=== PATIENT | male | born 1980 | race Hispanic/Latino ===

== ENCOUNTER 2017-05-10 20:23 | Inpatient (IN) | payer OTHER, MEDICAID ==
[2017-05-10] MEDS ORDERED: Lactated Ringer's 1,000 ML IV STA (20:50)
[2017-05-10] MEDS ORDERED: Multivitamin (MVI) 10 ML, Thiamine 100 MG, Folic Acid 1 MG in Sodium Chloride 0.9% 1,00... IV ONE (20:52)
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
[2017-05-10 21:08] LABS: SQUAMOUS EPITHIAL < 1 /hpf (0-5); URINE BACTERIA RARE (<OCC); URINE BILIRUBIN NEGATIVE (NEGATIVE); URINE BLOOD NEGATIVE (NEGATIVE); URINE CLARITY Clear (Clear); URINE COLOR Yellow (YELLOW); URINE GLUCOSE (UA) NORMAL (Normal); URINE LEUKOCYTE ESTERASE NEG Leu/uL (Negative); URINE PROTEIN NEGATIVE (NEGATIVE); URINE UROBILINOGEN NORMAL mg/dL (0.2-1.0)
[2017-05-10 21:16] LABS: BASO # 0.1 K/uL (0.0-0.2); BASO % 0.6 % (0.0-2.0); EOS # 0.1 K/uL (0.0-0.7); EOS % 0.8 % (0.0-4.0); HEMOGLOBIN 12.9 g/dL (12.0-18.0); LYMPH # 3.7 K/uL (1.0-4.3); LYMPH % 25.8 % (20.0-40.0); MEAN CELL VOLUME 96.5 fL (80.0-94.0); MEAN CORPUSCULAR HEMOGLOBIN 32.1 pg (27.0-31.0); MEAN CORPUSCULAR HGB CONC 33.3 g/dL (33.0-37.0); MEAN PLATELET VOLUME 7.8 fL (7.2-11.7); MONO # 0.6 K/uL (0.0-0.8); MONO % 4.4 % (0.0-10.0); NEUT # 9.9 K/uL (1.8-7.0); NEUT % 68.4 % (50.0-75.0); RBC 4.02 Mil/uL (4.40-5.90); RED CELL DISTRIBUTION WIDTH 13.4 % (11.5-14.5); WHITE BLOOD COUNT 14.5 K/uL (4.8-10.8)
[2017-05-10 21:26] LABS: BARBITURATES, UR NEGATIVE (NEGATIVE); BENZODIAZEPINES, UR NEGATIVE (NEGATIVE); OPIATES, UR NEGATIVE (NEGATIVE); PHENCYCLIDINE, UR NEGATIVE (NEGATIVE)
[2017-05-10 21:28] LABS: ALB/GLOB RATIO 1.4 (1.0-2.1); ALBUMIN 4.5 g/dL (3.5-5.0); ALT/SGPT 40 U/L (21-72); AST/SGOT 51 U/L (17-59); BLOOD UREA NITROGEN 16 mg/dL (9-20); CALCIUM 9.5 mg/dl (8.6-10.4); GFR AFRICAN-AMERICAN > 60; GFR NON-AFRICAN AMERICAN > 60
--- NOTE | 2017-05-10 23:35 | CT ---
EXAM: CT Head Without Intravenous Contrast CLINICAL HISTORY: 36 years old, male; Injury or trauma; Fall; Initial encounter; Blunt trauma (contusions or hematomas); Consciousness not specified TECHNIQUE: Axial computed tomography images of the head/brain without intravenous contrast. All CT scans at this facility use one or more dose reduction techniques, viz.: automated exposure control; ma/kV adjustment per patient size (including targeted exams where dose is matched to indication; i.e. head); or iterative reconstruction technique. Coronal and sagittal reformatted images were created and reviewed. COMPARISON: No relevant prior studies available. FINDINGS: Brain: Mild atrophy. Small subdural collections along frontal convexities, mildly increased in attenuation relative to CSF, right greater than left. No mass. Mild encephalomalacia within left frontal region. No definite edema. Ventricles: No hydrocephalus. Bones/joints: No calvarial fracture. Mastoid air cells: No mastoid effusion. IMPRESSION: 1. Mildly hyperdense subdural collections. Acute/subacute on chronic subdural hematomas not excluded. Compare with prior examinations if available. 2. See facial bone CT report for additional details. 3. Incidental/non-acute findings are described above.
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
[2017-05-10] MEDS: Lactated Ringer's 1,000 ML IV SCH (23:40)
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
[2017-05-11 08:20] LABS: MEAN CELL VOLUME 96.7 fL (80.0-94.0); MEAN CORPUSCULAR HGB CONC 34.1 g/dL (33.0-37.0); MEAN PLATELET VOLUME 8.3 fL (7.2-11.7); RBC 3.03 Mil/uL (4.40-5.90); RED CELL DISTRIBUTION WIDTH 13.5 % (11.5-14.5); WHITE BLOOD COUNT 7.4 K/uL (4.8-10.8)
[2017-05-11] MEDS: Lactated Ringer's 1,000 ML IV SCH ×4 (08:45→23:16)
[2017-05-11] MEDS: Multiple Vitamins Tab PO SCH (09:25)
[2017-05-11 09:49] LABS: AMYLASE 55 U/L (30-110); BLOOD UREA NITROGEN 21 mg/dL (9-20); CALCIUM 8.6 mg/dl (8.6-10.4); GFR AFRICAN-AMERICAN > 60; GFR NON-AFRICAN AMERICAN > 60; LIPASE 94 U/L (23-300)
[2017-05-11] MEDS ORDERED: Enoxaparin 40 mg Syringe SC SCH (10:00)
--- NOTE | 2017-05-11 10:29 | CP.PCM.PN ---
Subjective - Date & Time of Evaluation Date of Evaluation: 05/11/17 Time of Evaluation: 10:27 - Subjective Subjective: miinimal SDHs seen on CT Told had CT day or so prior at other institution REpeat CT this AM shows no sig changes No intervention requiredcan be d/c'ed when otherwise clear Objective - Vital Signs/Intake and Output Vital Signs (last 24 hours): Temp Pulse Resp BP Pulse Ox 97.7 F 83 17 93/49 L 97 05/11/17 07:30 05/11/17 08:23 05/11/17 08:23 05/11/17 08:23 05/11/17 08:23 Intake and Output: 05/11/17 05/11/17 06:59 18:59 Intake Total 2125 Output Total 1200 Balance 925 - Medications Medications: Current Medications Clonidine HCl (Catapres) 0.1 mg PO Q4H PRN PRN Reason: Symptoms of alcohol withdrawl Folic Acid (Folic Acid) 1 mg PO DAILY [facility] Last Admin: 05/11/17 09:25 Dose: 1 mg Lactated Ringer's (Lactated Ringer's) 1,000 mls @ 125 mls/hr IV .Q8H SABAS Last Admin: 05/11/17 08:45 Dose: Not Given Lorazepam (Ativan) 2 mg PO Q4 SABAS PRN Reason: Taper Stop: 05/15/17 23:29 Last Admin: 05/11/17 09:25 Dose: 2 mg Multivitamins (Hexavitamin) 1 tab PO DAILY [facility] Last Admin: 05/11/17 09:25 Dose: 1 tab Thiamine HCl (Vitamin B1 Tab) 100 mg PO DAILY [facility] Last Admin: 05/11/17 09:29 Dose: 100 mg Trazodone HCl (Desyrel) 50 mg PO PRN PRN Reason: Insomnia - Labs Labs: 05/11/17 07:54 05/11/17 07:54
--- NOTE | 2017-05-11 10:29 | CT ---
PROCEDURE: CT HEAD WITHOUT CONTRAST. HISTORY: repeat order COMPARISON: 05/10/2017 TECHNIQUE: Axial computed tomography images were obtained through the head/brain without intravenous contrast. Radiation dose: Total exam DLP = 924.82 mGy-cm. This CT exam was performed using one or more of the following dose reduction techniques: Automated exposure control, adjustment of the mA and/or kV according to patient size, and/or use of iterative reconstruction technique. FINDINGS: HEMORRHAGE: Likely small bilateral chronic frontal convexity subdural hygromas. Slightly increased density of the right frontal subdural hygroma relative to the left indicating subacute nature of the right hygroma. No evidence of acute subdural hemorrhage. No evidence of subarachnoid or intraparenchymal hemorrhage. BRAIN: Left frontal encephalomalacia common nonspecific. This may be the result of old trauma or old infarcts. Unchanged in appearance from prior examination. No atrophy or chronic microvascular ischemic changes. VENTRICLES: Unremarkable. No hydrocephalus. CALVARIUM: No calvarial fracture. Left frontal scalp hematoma extending to involve the left superior palpebrum. Mild right frontal scalp ecchymosis. Small amount of subcutaneous gas within the midline frontal scalp indicates likely laceration. PARANASAL SINUSES: Chronic ethmoid and bilateral maxillary and sphenoid sinusitis. MASTOID AIR CELLS: Unremarkable as visualized. No inflammatory changes. OTHER FINDINGS: None. IMPRESSION: Small bilateral chronic frontal convexity subdural hygromas with slight increased density of the right frontal subdural collection indicating likely subacute nature. No evidence of acute extra-axial hemorrhage. No parenchymal hemorrhage. No intraventricular hemorrhage. Left frontal encephalomalacia common nonspecific. Left frontal scalp hematoma/contusion with probable frontal scalp laceration and subcutaneous gas. Additional minor findings as above.
[2017-05-11] MEDS: Bacitracin/Neomycin/Polymyxin Oint(30GM) TOP SCH ×2 (14:15→17:04)
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
--- NOTE | 2017-05-11 17:45 | CT ---
EXAM: CT Cervical Spine Without Intravenous Contrast EXAM DATE/TIME: 05/11/2017 1:33 PM CLINICAL HISTORY: 36 years old, male; Signs and symptoms; Numbness; Additional info: Arm numbness TECHNIQUE: Axial computed tomography images of the cervical spine without intravenous contrast. All CT scans at this facility use one or more dose reduction techniques, viz.: automated exposure control; ma/kV adjustment per patient size (including targeted exams where dose is matched to indication; i.e. head); or iterative reconstruction technique. Coronal and sagittal reformatted images were created and reviewed. COMPARISON: There are no prior studies for comparison. FINDINGS: Artifacts: There is streak artifact from surgical hardware. Vertebrae: There is maintenance of the cervical lordosis. There is a convex left cervical curve. There is no prevertebral soft tissue swelling. There is degenerative change at multiple levels. There are postsurgical changes at multiple levels. There is narrowing the pre-dental space. There is disc space narrowing at all levels. There is partial disc space fusion C5-C6 C6-C7 and C7-T1. There is narrowing of multiple facet joints. 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 There is a laminectomy at the C2. Posterior arch of C3 and C4 are intact. There posterior fusion C5/C6/C7. There are laminectomy defects C5 and C6. There postsurgical changes in the posterior arch at C7. Posterior arches T1 and T2 are intact. There are postsurgical changes of fusion T2, T3 and T4 which are incompletely imaged. Discs/spinal canal/neural foramina: See above. Soft tissues: See above. Thyroid: Thyroid is unremarkable Lung apices: Lung apices are clear IMPRESSION: Extensive postsurgical and degenerative change, no acute abnormality identified Correlation with prior images advised
[2017-05-12 07:35] LABS: HEMOGLOBIN 10.4 g/dL (12.0-18.0); MEAN CELL VOLUME 97.2 fL (80.0-94.0); MEAN CORPUSCULAR HEMOGLOBIN 33.2 pg (27.0-31.0); MEAN CORPUSCULAR HGB CONC 34.1 g/dL (33.0-37.0); MEAN PLATELET VOLUME 8.3 fL (7.2-11.7); RBC 3.14 Mil/uL (4.40-5.90); RED CELL DISTRIBUTION WIDTH 13.4 % (11.5-14.5); WHITE BLOOD COUNT 6.8 K/uL (4.8-10.8)
[2017-05-12 07:41] LABS: BLOOD UREA NITROGEN 13 mg/dL (9-20); CALCIUM 8.6 mg/dl (8.6-10.4); GFR AFRICAN-AMERICAN > 60; GFR NON-AFRICAN AMERICAN > 60
[2017-05-12] MEDS: Multiple Vitamins Tab PO SCH (09:44)
[2017-05-12] MEDS: Bacitracin/Neomycin/Polymyxin Oint(30GM) TOP SCH (09:47)
[2017-05-12] MEDS ORDERED: Pneumococcal 23-Valent Vaccine IM ONE (10:00)
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
--- NOTE | 2017-05-13 00:48 | PCM.PYCHPN ---
Psychiatric Progress Note - Psychiatric Progress Note Patient seen today, length of contact: 15 min Patient Chief Complaint: "I need detox" Problems Identified/Issues Discussed: Patient seen and evaluated, chart reviewed and discussed with the nurse. Patient still reports withdrawal symptoms including nausea, headaches, cramps and sweating. He reports irritable mood but denies any feelings of hopelessness and helplessness. He denies any SI/HI/AVH. Patient remained isolated, confined and withdrawn. He is taking medication and denies any side effects. He needs more time for stabilization. Supportive therapy and psychoeducation were given. Medication Change: Yes Medical Record Reviewed: Yes Mental Status Examination - Cognitive Function Orientation: Person, Place, Situation, Time Memory: Intact Attention: WNL Concentration: Poor Association: WNL Fund of Knowledge: Poor - Mood Mood: Depressed, Anxious - Affect Affect: Constricted, Depressed - Speech Speech: Soft - Formal Thought Process Formal Thought Process: No Impairment - Suicidal Ideation Suicidal Ideation: No - Homicidal Ideation Homicidal Ideation: No Goal/Treatment Plan - Goal/Treatment Plan Need for Continued Stay: Severe depression anxiety, Severe functional impairment Progress Toward Problem(s) and Goals/Treatment Plan: Alcohol use disorder severe CBT Psychoeducation Supportive therapy, individual therapy Use [place] for abstinence Alcohol withdrawal CBT Psychoeducation Supportive therapy, individual therapy Ativan taper when scoring Ativan PRN Bipolar disorder Psychoeducation Supportive therapy, group therapy, individual therapy Trazodone 50 mg - Smoking Cessation Smoking Cessation Initiated: No
[2017-05-13] MEDS: Multiple Vitamins Tab PO SCH (09:28)
[2017-05-13] MEDS: Bacitracin/Neomycin/Polymyxin Oint(30GM) TOP SCH (09:29)
[2017-05-13] MEDS ORDERED: Influenza Vaccine 60 mcg/0.5 mL SYR (4YR UP) IM ONE (10:00)
--- NOTE | 2017-05-13 11:19 | CP.PCM.PCO ---
Physician Communication Note - Physician Communication Note Physician Communication Note: Pt stable. Admit to detox.
--- NOTE | 2017-05-13 11:51 | PCM.PYCHPN ---
Psychiatric Progress Note - Psychiatric Progress Note Patient seen today, length of contact: 17 min Patient Chief Complaint: "Not well" Problems Identified/Issues Discussed: Pt is seen, chart reviewed and case discussed. The pt is compliant with medications and reports no side-effects. Symptoms are improving but needs more time to stabilize. Transferred to detox as he is now medically cleared He is known to the underwriter from previous admission. He claims he is active and enrolled [facility]. After care discussed, support and psychoeducation given. Medication Change: Yes (detox changes daily) Medical Record Reviewed: Yes Mental Status Examination - Cognitive Function Orientation: Person, Place, Situation, Time Memory: Intact Attention: WNL Concentration: WNL Association: WNL Fund of Knowledge: WNL - Mood Mood: Depressed, Anxious - Affect Affect: Constricted, Depressed - Speech Speech: Appropriate - Formal Thought Process Formal Thought Process: No Impairment - Suicidal Ideation Suicidal Ideation: No - Homicidal Ideation Homicidal Ideation: No Goal/Treatment Plan - Goal/Treatment Plan Need for Continued Stay: Discharge may exacerbated symptoms, Severe functional impairment Progress Toward Problem(s) and Goals/Treatment Plan: Ativan detox As needed medications Gabapentin for augmentation All risks, benefits and alternatives of medications, including no medications, discussed and the patient understood and agreed. Attend groups and activities Supportive therapy and psychoeducation [place] for abstinence CBT for relapse prevention Encourage MAT Refer to rehab or IOP Attend self-help groups as well
--- NOTE | 2017-05-13 12:12 | PCM.BM ---
<Bianca Osman - Last Filed: 05/13/17 12:13> Treatment Plan Problems - Problems identified on initial assessmt Potential for Alcohol abuse Date Initiated: 05/13/17 Time Initiated: 12:00 Assessment reference: NA Status: Active Treatment assets and liabiliti Patient Assests: adapts well (ambulates using wheelchair), cooperative, insightful, self-reliant, good support system, negotiates basic needs Patient Liabilities: physical pain, substance abuse, medical problems - Milieu Protocol Maintain good personal hygiene: every shift Encourage regular showers, every shift Remind patient to perform daily oral care, every shift Assist patient to perform ADL's Maintain personal safety: every shift Educate patient to report safety concerns to staff, every shift Monitor environment for contraband/sharps Medication safety: Monitor for expected outcome, potential side effects: every shift, Assess barriers to learning: every shift, Assess readiness for medication education: every shift Milieu Narrative: Alcohol use disorder severe CBT Psychoeducation Supportive therapy, individual therapy Use IN for abstinence Alcohol withdrawal CBT Psychoeducation Supportive therapy, individual therapy Ativan taper when scoring Ativan PRN Bipolar disorder Psychoeducation Supportive therapy, group therapy, individual therapy Trazodone 50 mg Discharge/Continuing Care - Treatment Team Participation Patient/Family/SO Statement: Alcohol use disorder severe CBT Psychoeducation Supportive therapy, individual therapy Use IN for abstinence Alcohol withdrawal CBT Psychoeducation Supportive therapy, individual therapy Ativan taper when scoring Ativan PRN Bipolar disorder Psychoeducation Supportive therapy, group therapy, individual therapy Trazodone 50 mg <Jordin Pan - Last Filed: 05/13/17 16:34> - Diagnosis (1) Alcohol use disorder, severe, dependence Status: Acute Interventions: 05/13/17 16:34 * Assess 7x/week regarding severity of withdrawal * Educate regarding risks, benefits, side effects and alternatives of medications * Use Motivational Interviewing for abstinence * Use CBT for relapse prevention * Medication management for withdrawal symptoms * Encourage medication assisted treatment *
--- NOTE | 2017-05-13 18:47 | CP.PCM.PCO ---
Physician Communication Note - Physician Communication Note Physician Communication Note: Please see above
[2017-05-14] MEDS: Bacitracin/Neomycin/Polymyxin Oint(30GM) TOP SCH (09:35)
[2017-05-14] MEDS: Multiple Vitamins Tab PO SCH (09:36)
--- NOTE | 2017-05-14 12:10 | PCM.PYCHPN ---
Psychiatric Progress Note - Psychiatric Progress Note Patient seen today, length of contact: 18 min Patient Chief Complaint: "I have pain" Problems Identified/Issues Discussed: The pt is seen, chart reviewed, case discussed with staff. Support given, CBT and GA used briefly No new symptoms reported, improving slowly and needs more time No SEs from medications, risks discussed. After care discussed - will go back to [facility] and stay in a care home in [place]. He says he cannot work so [employer] is not possible. DC date is Thursday Sutures are taken out w/o any complication, he thanked. They were in at least for 5 days Medication Change: Yes (detox changes daily) Medical Record Reviewed: Yes Mental Status Examination - Cognitive Function Orientation: Person, Place, Situation, Time Memory: Intact Attention: WNL Concentration: WNL Association: WNL Fund of Knowledge: WNL - Mood Mood: Depressed, Anxious - Affect Affect: Constricted, Depressed - Speech Speech: Appropriate - Formal Thought Process Formal Thought Process: No Impairment - Suicidal Ideation Suicidal Ideation: No - Homicidal Ideation Homicidal Ideation: No Goal/Treatment Plan - Goal/Treatment Plan Need for Continued Stay: Discharge may exacerbated symptoms, Severe functional impairment Progress Toward Problem(s) and Goals/Treatment Plan: Ativan detox As needed medications Gabapentin for augmentation All risks, benefits and alternatives of medications, including no medications, discussed and the patient understood and agreed. Attend groups and activities Supportive therapy and psychoeducation GA for abstinence CBT for relapse prevention Encourage MAT Refer to rehab or IOP Attend self-help groups as well
--- NOTE | 2017-05-14 17:57 | CARD ---
APPROVED REPORT EKG Measurement Heart [id number] <Conclusion> Sinus tachycardia Otherwise normal ECG
[2017-05-15] MEDS: Multiple Vitamins Tab PO SCH (09:33)
[2017-05-15] MEDS: Bacitracin/Neomycin/Polymyxin Oint(30GM) TOP SCH (09:36)
--- NOTE | 2017-05-15 12:13 | PCM.PYCHPN ---
Psychiatric Progress Note - Psychiatric Progress Note Patient seen today, length of contact: 15 min Patient Chief Complaint: "I have headache sometimes" Problems Identified/Issues Discussed: The pt is seen, chart reviewed, case discussed with staff. The pt is compliant with medications and reports no side-effects. Symptoms are improving but needs more time to stabilize. After care discussed, support and psychoeducation given. Other than mild headache, no other neuro sxs reported, ie numbness, weakness, double-vision etc. will follow Scars are clear and uninfected. After care: IOP in [facility] [place] [facility] [place] on Thursday Medication Change: Yes (detox changes daily) Medical Record Reviewed: Yes Mental Status Examination - Cognitive Function Orientation: Person, Place, Situation, Time Memory: Intact Attention: WNL Concentration: WNL Association: WNL Fund of Knowledge: WNL - Mood Mood: Depressed, Anxious - Affect Affect: Constricted, Depressed - Speech Speech: Appropriate - Formal Thought Process Formal Thought Process: No Impairment - Suicidal Ideation Suicidal Ideation: No - Homicidal Ideation Homicidal Ideation: No Goal/Treatment Plan - Goal/Treatment Plan Need for Continued Stay: Discharge may exacerbated symptoms, Severe functional impairment Progress Toward Problem(s) and Goals/Treatment Plan: Ativan detox As needed medications Gabapentin for augmentation All risks, benefits and alternatives of medications, including no medications, discussed and the patient understood and agreed. Attend groups and activities Supportive therapy and psychoeducation CA for abstinence CBT for relapse prevention Encourage MAT Refer to rehab or IOP Attend self-help groups as well Estimated Date of D/C: 05/17/17
[2017-05-16] MEDS: Bacitracin/Neomycin/Polymyxin Oint(30GM) TOP SCH (09:09)
[2017-05-16] MEDS: Multiple Vitamins Tab PO SCH (09:09)
[2017-05-17] MEDS: Multiple Vitamins Tab PO SCH (09:14)
[2017-05-17] MEDS: Bacitracin/Neomycin/Polymyxin Oint(30GM) TOP SCH (09:14)
[2017-05-17 10:14] VITALS: BP 107/70; PULSE 89; RESP 20; TEMP 98.9; O2SAT 99
--- NOTE | 2017-05-17 21:31 | PCM.PYCHPN ---
Psychiatric Progress Note - Psychiatric Progress Note Patient seen today, length of contact: 15 min Patient Chief Complaint: I'M STILL NOT SLEEPING WELL AND HAVING WEIRD DREAMS Problems Identified/Issues Discussed: MANAGEMENT OF WITHDRAWAL SYMPTOMS POST ACUTE WITHDRAWAL SYNDROME Medical Problems: NOTHING ACUTE Diagnostic Results: REVIEWED DSM 5 Symptoms Update: INSOMNIA RESTLESS LEGS Medication Change: Yes (LTBRIUM AND METHADONE GTAPER) Medical Record Reviewed: Yes Mental Status Examination - Cognitive Function Orientation: Person, Place, Situation, Time Memory: Intact Attention: WNL Concentration: Poor Association: WNL Fund of Knowledge: WNL - Mood Mood: Depressed, Anxious - Affect Affect: Constricted, Depressed - Speech Speech: Appropriate, Soft - Formal Thought Process Formal Thought Process: No Impairment - Suicidal Ideation Suicidal Ideation: No - Homicidal Ideation Homicidal Ideation: No Goal/Treatment Plan - Goal/Treatment Plan Need for Continued Stay: Severe depression anxiety, Discharge may exacerbated symptoms, Severe functional impairment Progress Toward Problem(s) and Goals/Treatment Plan: ALCOHOL USE DISOPRDER LIBRIUM TAPER ALCOHOL USE DISORDER SEVERE CBT MD GROUP MILIEU AND RECREATIONAL THERAPY SUPPORTIVE PSYCHOTHERAPY OPIOID WITHDRAWAL METHADONE OPIOID USE DISORDER CBT MD SUPPORTIVE PSYCHOTHERAPY Estimated Date of D/C: 05/17/17 - Smoking Cessation Smoking Cessation Initiated: No
== END 2017-05-17 10:15 | disposition home or self-care (01) | DRG 895 ==
LOC: SUPCPDRO 20:23 → C.ER 20:23 → C.9E 22:20 → C.6T 05-11 08:14 → OBSVTOIN 05-12 16:31 → C.6T 05-13 10:23 → C.7D 05-13 11:16
PROVIDERS: ADMIT Psychiatry & Neurology Psychiatry; ATTEND Psychiatry & Neurology Psychiatry
PROC: HZ52ZZZ Individual Psychotherapy for Substance Abuse Treatment, Cognitive-Behavioral (ICD-10-PCS; principal; 2017-05-12)
PROC: HZ59ZZZ Individual Psychotherapy for Substance Abuse Treatment, Supportive (ICD-10-PCS; 2017-05-12)
PROC: HZ56ZZZ Individual Psychotherapy for Substance Abuse Treatment, Psychoeducation (ICD-10-PCS; 2017-05-12)
PROC: HZ2ZZZZ Detoxification Services for Substance Abuse Treatment (ICD-10-PCS; 2017-05-12)
DX: F10.239 Alcohol dependence with withdrawal, unspecified (principal); M41.9 Scoliosis, unspecified; F11.23 Opioid dependence with withdrawal; F31.9 Bipolar disorder, unspecified; F17.210 Nicotine dependence, cigarettes, uncomplicated; F43.10 Post-traumatic stress disorder, unspecified; G25.81 Restless legs syndrome; G40.909 Epilepsy, unspecified, not intractable, without status epilepticus; G47.00 Insomnia, unspecified; H91.91 Unspecified hearing loss, right ear; Z59.0 Homelessness; F12.90 Cannabis use, unspecified, uncomplicated

== ENCOUNTER 2017-07-14 10:25 | Emergency (ER) | payer OTHER ==
--- NOTE | 2017-07-14 12:31 | C.PDOC ---
History Of Present Illness 36 y/o male presents to ED requesting detox from Marijuana, ETOH and Cocaine. Patient reports last used yesterday. At present time,pt denies suicidal ideation , homicidal ideation, hallucinations or any other physical complaints at this time. At the time of evaluation, AAO#3, appropriate, not in nay apparent distress. Time Seen by Provider: 07/14/17 10:30 Chief Complaint (Nursing): Substance Abuse History Per: Patient History/Exam Limitations: no limitations Onset/Duration Of Symptoms: Days Current Symptoms Are (Timing): Still Present Suicide/Self Injury Attempted (Context): None Modifying Factor(s): Alcohol, Marijuana, Cocaine Past Medical History Reviewed: Historical Data, Nursing Documentation, Vital Signs Vital Signs: Last Vital Signs Temp 98.6 F 07/14/17 12:58 Pulse 83 07/14/17 12:58 Resp 20 07/14/17 12:58 BP 126/83 07/14/17 12:58 Pulse Ox 96 07/14/17 12:58 - Medical History PMH: Anxiety, Back Problems, Depression, Post Traumatic Stress Disorder Surgical History: Back Surgery - [facility] DETOXIFICATION SERVICES FOR SUBSTANCE ABUSE TREATMENT (05/12/17) GROUP PSYCHOTHERAPY (01/06/17) INDIV PSYCHOTHERAPY FOR SUBSTANCE ABUSE TREATMENT, SUPPORT (05/12/17) INDIV PSYCHOTHERAPY FOR SUBSTANCE ABUSE, COGNITIV BEHAVIORAL (05/12/17) INDIV PSYCHOTHERAPY FOR SUBSTANCE ABUSE, PSYCHOEDUCATION (05/12/17) INDIVIDUAL PSYCHOTHERAPY, COGNITIVE-BEHAVIORAL (01/06/17) Family History: States: No Known Family Hx - Social History Hx Alcohol Use: Yes Hx Substance Use: Yes - Immunization History Hx Tetanus Toxoid Vaccination: Yes Hx Influenza Vaccination: No Hx Pneumococcal Vaccination: No Review Of Systems Constitutional: Negative for: Fever, Chills Cardiovascular: Negative for: Chest Pain Respiratory: Negative for: Shortness of Breath Gastrointestinal: Negative for: Nausea, Vomiting Psych: Negative for: Suicidal ideation, Withdrawal Physical Exam - Physical Exam Appears: Well, Non-toxic, No Acute Distress Skin: Warm, Dry, No Rash, No Ecchymosis Head: Atraumatic, Normacephalic Eye(s): bilateral: PERRL Nose: No Flaring, No Discharge Oral Mucosa: Moist, No Drooling Tongue: Normal Appearing Lips: Normal Appearing Throat: No Drooling Neck: Trachea Midline, Supple Chest: Symmetrical, No Deformity Cardiovascular: Rhythm Regular, No Murmur Respiratory: No Decreased Breath Sounds, No Accessory Muscle Use, No Rales, No Rhonchi, No Wheezing Gastrointestinal/Abdominal: Soft, No Tenderness, No Guarding, No Rebound Back: No CVA Tenderness, No Vertebral Tenderness, No Paraspinal Tenderness Extremity: Normal ROM, No Pedal Edema, Capillary Refill (<2 seconds), No Swelling Neurological/Psych: Oriented x3, Normal Speech, Normal Cognition ED Course And Treatment O2 Sat by Pulse Oximetry: 98 (RA) Pulse Ox Interpretation: Normal Progress Note: No detox beds available,. On re-eval, pt is afebrile, hemodynamicaly stable. Non-toxic. AMbulatory in Ed with stable gait. Neuorlogicaly intact. Pt was provided outpt F/U resources. Advised, ref. to f/ u with detox. retrun if any new changes. Disposition - Disposition Disposition: HOME/ ROUTINE Disposition Time: 11:36 Condition: STABLE Additional Instructions: CALL DETOX AT [phone] FOR BED AVAILABILITY, RETURN TO ED IF ANY WORSENING OR NEW CHANGES. Instructions: Drug Abuse and Drug Addiction (DC) Forms: [facility] (Icelandic) - Clinical Impression Clinical Impression: Polysubstance (excluding opioids) dependence - PA / ONCOLOGY NURSE NAVIGATOR / Resident Statement MD/DO has reviewed & agrees with the documentation as recorded. - Scribe Statement The provider has reviewed the documentation as recorded by the Scribpetros Michaud All medical record entries made by the Biancaibpetros were at my direction and personally dictated by me. I have reviewed the chart and agree that the record accurately reflects my personal performance of the history, physical exam, medical decision making, and the department course for this patient. I have also personally directed, reviewed, and agree with the discharge instructions and disposition.
[2017-07-14 12:59] VITALS: BP 126/83; PULSE 83; RESP 20; TEMP 98.6
[2017-07-16 04:29] VITALS: O2SAT 98
== END 2017-07-14 12:58 | disposition home or self-care (01) ==
LOC: C.ER 10:25
DX: F19.20 Other psychoactive substance dependence, uncomplicated (principal)

== ENCOUNTER 2017-07-18 12:42 | Inpatient (IN) | payer OTHER, MEDICAID ==
[2017-07-18 13:04] VITALS: BMI 23.3
--- NOTE | 2017-07-18 13:24 | C.PDOC ---
History Of Present Illness 36 yo male w/PMHx of alcohol abuse come in request detox. Pt sts, last drink was this AM. Pt denies suicidal or homocidal ideation, denies hallucination, sx , denies any active physical complaints. Ambulate to Ed for evaluation, not in any apparent distress. AAO#3, (+) strong alcohol odor. Time Seen by Provider: 07/18/17 12:57 Chief Complaint (Nursing): Substance Abuse History Per: Patient Past Medical History Reviewed: Historical Data, Nursing Documentation, Vital Signs Vital Signs: Last Vital Signs Temp 99.4 F 07/18/17 16:52 Pulse 108 H 07/18/17 16:52 Resp 18 07/18/17 16:52 BP 120/73 07/18/17 16:52 Pulse Ox 96 07/18/17 16:52 - Medical History PMH: Anxiety, Back Problems, Depression, Post Traumatic Stress Disorder Denies: Chronic Kidney Disease Surgical History: Back Surgery - [facility] Procedures DETOXIFICATION SERVICES FOR SUBSTANCE ABUSE TREATMENT (05/12/17) GROUP PSYCHOTHERAPY (01/06/17) INDIV PSYCHOTHERAPY FOR SUBSTANCE ABUSE TREATMENT, SUPPORT (05/12/17) INDIV PSYCHOTHERAPY FOR SUBSTANCE ABUSE, COGNITIV BEHAVIORAL (05/12/17) INDIV PSYCHOTHERAPY FOR SUBSTANCE ABUSE, PSYCHOEDUCATION (05/12/17) INDIVIDUAL PSYCHOTHERAPY, COGNITIVE-BEHAVIORAL (01/06/17) Family History: States: No Known Family Hx - Social History Hx Tobacco Use: Yes Hx Alcohol Use: Yes Hx Substance Use: Yes - Immunization History Hx Tetanus Toxoid Vaccination: Yes Hx Influenza Vaccination: No Hx Pneumococcal Vaccination: No Review Of Systems Except As Marked, All Systems Reviewed And Found Negative. Constitutional: Negative for: Fever, Chills ENT: Negative for: Throat Pain, Throat Swelling Cardiovascular: Negative for: Chest Pain, Palpitations Respiratory: Negative for: Cough, Shortness of Breath Gastrointestinal: Negative for: Nausea, Vomiting, Abdominal Pain, Melena, Hematochezia, Hematemesis Genitourinary: Negative for: Incontinence Musculoskeletal: Negative for: Neck Pain, Back Pain Neurological: Negative for: Weakness, Numbness, Altered Mental Status, Headache , Dizziness Psych: Positive for: Other (substance abuse). Negative for: Suicidal ideation Physical Exam - Physical Exam Appears: Well, Non-toxic, No Acute Distress Skin: Normal Color, Warm, Dry, No Rash, No Ecchymosis Head: Atraumatic, Normacephalic Eye(s): bilateral: PERRL Ear(s): Bilateral: Normal Nose: No Flaring, No Discharge Oral Mucosa: Moist, No Drooling Tongue: Normal Appearing Lips: Normal Appearing Throat: No Drooling Neck: Normal ROM, Trachea Midline, No Midline Cervical Tenderness, No Paracervical Tenderness, No Step Off Deformity, Supple Chest: Symmetrical Cardiovascular: Rhythm Regular Respiratory: No Decreased Breath Sounds, No Accessory Muscle Use, No Stridor, No Wheezing Gastrointestinal/Abdominal: Soft, No Tenderness, No Distention, No Guarding Back: No CVA Tenderness Extremity: Normal ROM, No Deformity, No Swelling Neurological/Psych: Oriented x3, Normal Speech, Normal Motor, Normal Sensation, Normal Reflexes ED Course And Treatment - Laboratory Results Result Diagrams: 07/18/17 13:53 07/18/17 13:53 Lab Interpretation: No Acute Changes O2 Sat by Pulse Oximetry: 99 Pulse Ox Interpretation: Normal - Radiology CXR: Interpreted by Me, Viewed By Me, Read By Radiologist - Other Rad CXR X-Ray: Read By Radiologist Interpretation: Report Date : 07/18/2017 16:59:16. My Comment : . HISTORY : Cough. COMPARISON: No prior. TECHNIQUE: Chest PA and lateral. FINDINGS: LUNGS: No active pulmonary disease. PLEURA: No significant pleural effusion identified. No pneumothorax apparent. CARDIOVASCULAR: Normal. OSSEOUS STRUCTURES: Dextroscoliotic thoracic spinal deformity identified with left-sided spinal tim in position trace scoliosis originating at the approximate T2 level and extending inferior to the inferior margins of the image. Incidental note is made of cervical spinal fusion hardware. VISUALIZED UPPER ABDOMEN: Normal. OTHER FINDINGS: None. IMPRESSION: No acute cardiopulmonary disease appreciable. Spinal hardware identified in position as discussed above with dextroscoliosis of the thoracic spine evident. Progress Note: Blood work review and appears normal, no acute findings. CXR- baseline. Pt is medically cleared for psych evaluation. AFter pt was seen by PES, case discussed with and admisison arranged to detox floor. On re- evaluation, pt reports AAO#3, not in any apparent distress. Pt is afebrile, hemodynamiclay stable. Non-toxic. STable for admission now. Disposition - Disposition Disposition: HOSPITALIZED Disposition Time: 14:30 Condition: STABLE - Clinical Impression Clinical Impression: Alcohol use disorder, severe, dependence
[2017-07-18 13:47] LABS: URINE BILIRUBIN NEGATIVE (NEGATIVE); URINE BLOOD NEGATIVE (NEGATIVE); URINE CLARITY Clear (Clear); URINE COLOR Straw (YELLOW); URINE GLUCOSE (UA) NORMAL (Normal); URINE LEUKOCYTE ESTERASE NEG Leu/uL (Negative); URINE PROTEIN NEGATIVE (NEGATIVE); URINE UROBILINOGEN NORMAL mg/dL (0.2-1.0)
[2017-07-18 13:57] LABS: BASO % 0.3 % (0.0-2.0); EOS # 0.1 K/uL (0.0-0.7); EOS % 0.8 % (0.0-4.0); LYMPH # 1.9 K/uL (1.0-4.3); LYMPH % 14.4 % (20.0-40.0); MEAN CELL VOLUME 97.4 fL (80.0-94.0); MEAN CORPUSCULAR HEMOGLOBIN 33.7 pg (27.0-31.0); MEAN CORPUSCULAR HGB CONC 34.6 g/dL (33.0-37.0); MEAN PLATELET VOLUME 7.9 fL (7.2-11.7); MONO % 7.2 % (0.0-10.0); NEUT # 10.3 K/uL (1.8-7.0); NEUT % 77.3 % (50.0-75.0); NRBC % 0.1 % (0.0-2.0); RBC 4.13 Mil/uL (4.40-5.90)
[2017-07-18 14:06] LABS: HEMOGLOBIN 13.9 g/dL (12.0-18.0); WHITE BLOOD COUNT 13.3 K/uL (4.8-10.8)
[2017-07-18 14:08] LABS: ALB/GLOB RATIO 1.2 (1.0-2.1); ALBUMIN 4.3 g/dL (3.5-5.0); ALT/SGPT 22 U/L (21-72); AST/SGOT 21 U/L (17-59); BLOOD UREA NITROGEN 15 mg/dL (9-20); CALCIUM 9.6 mg/dl (8.6-10.4); GFR AFRICAN-AMERICAN > 60; GFR NON-AFRICAN AMERICAN > 60
[2017-07-18 14:10] LABS: BARBITURATES, UR NEGATIVE (NEGATIVE); BENZODIAZEPINES, UR NEGATIVE (NEGATIVE); OPIATES, UR NEGATIVE (NEGATIVE); PHENCYCLIDINE, UR NEGATIVE (NEGATIVE)
--- NOTE | 2017-07-18 14:50 | PCM.BM ---
<Adriana Das - Last Filed: 07/18/17 14:49> Treatment Plan Problems - Problems identified on initial assessmt potential for alcohol withdrawals Date Initiated: 07/18/17 Assessment reference: NA Status: Active Treatment assets and liabiliti Patient Assests: adapts well (ambulates using wheelchair), cooperative, insightful, self-reliant, good support system, negotiates basic needs Patient Liabilities: substance abuse - Milieu Protocol Maintain good personal hygiene: daily Encourage regular showers, daily Remind patient to perform daily oral care, daily Assist patient to perform ADL's Conduct patient checks and document Observation sheet: Q15 minutes Maintain personal safety: every shift Educate patient to report safety concerns to staff, every shift Monitor environment for contraband/sharps Medication safety: Monitor for expected outcome, potential side effects: every shift, Assess barriers to learning: every shift, Assess readiness for medication education: every shift <Jordin Pan - Last Filed: 07/20/17 10:10> - Diagnosis (1) Alcohol use disorder, severe, dependence Status: Acute Interventions: 07/20/17 10:10 * Assess 7x/week regarding severity of withdrawal * Educate regarding risks, benefits, side effects and alternatives of medications * Use Motivational Interviewing for abstinence * Use CBT for relapse prevention * Medication management for withdrawal symptoms * Encourage medication assisted treatment * <Emma Mayers - Last Filed: 07/21/17 12:19> Family Contact Family involvement: Famliy/SO not involved - Goals for Treatment Patient goals for treatment: COMPLETE DETOX AND RETURN TO OUTPATIENT PROGRAM IN [place], [place]. Discharge/Continuing Care - Education Needs Education Needs: Patient Medication, Patient Diagnosis/Disease Process, Patient Coping Skills, Patient Anger Management skills, Patient Placement options, Patient Community resources - Discharge Discharge Criteria: No longer exhibiting s/s of withdrawal, Reduction of target symptoms Discharge to:: Home, With Family - Treatment Team Participation Patient/Family/SO Statement: 07/21/17 12:19 "I WANNA GO BACK TO [facility] IN [place]." Discussed with Family/SO: No Was Patient/Family/SO present at Treatment Team Meeting: Yes
[2017-07-18] MEDS: Multiple Vitamins Tab PO SCH (16:37)
--- NOTE | 2017-07-18 17:00 | RAD ---
HISTORY: Cough COMPARISON: No prior. TECHNIQUE: Chest PA and lateral FINDINGS: LUNGS: No active pulmonary disease. PLEURA: No significant pleural effusion identified. No pneumothorax apparent. CARDIOVASCULAR: Normal. OSSEOUS STRUCTURES: Dextroscoliotic thoracic spinal deformity identified with left-sided spinal tim in position trace scoliosis originating at the approximate T2 level and extending inferior to the inferior margins of the image. Incidental note is made of cervical spinal fusion hardware. VISUALIZED UPPER ABDOMEN: Normal. OTHER FINDINGS: None. IMPRESSION: No acute cardiopulmonary disease appreciable. Spinal hardware identified in position as discussed above with dextroscoliosis of the thoracic spine evident.
[2017-07-19] MEDS: Multiple Vitamins Tab PO SCH (09:40)
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
[2017-07-19] MEDS: Bacitracin 500 Units/gm Oint Foilpak UD TOP SCH ×2 (13:47→17:11)
[2017-07-20] MEDS: Multiple Vitamins Tab PO SCH (09:13)
[2017-07-20] MEDS: Bacitracin 500 Units/gm Oint Foilpak UD TOP SCH ×3 (09:14→18:08)
--- NOTE | 2017-07-20 14:43 | PCM.PYCHPN ---
Psychiatric Progress Note - Psychiatric Progress Note Patient seen today, length of contact: 16 Patient Chief Complaint: "Getting better" Problems Identified/Issues Discussed: The pt is seen, chart reviewed, case discussed with staff. The pt is compliant with medications and reports no side-effects. Patient states he is feeling better but complains of chronic back pain as well as a painful cyst on his buttocks. Symptoms are improving but needs more time to stabilize. After care discussed, support and psychoeducation given. Mental Status Examination - Cognitive Function Orientation: Person, Place, Situation, Time Memory: Intact Attention: WNL Concentration: WNL Association: WNL Fund of Knowledge: WNL - Mood Mood: Anxious - Affect Affect: Broad - Speech Speech: Appropriate - Formal Thought Process Formal Thought Process: No Impairment - Suicidal Ideation Suicidal Ideation: No - Homicidal Ideation Homicidal Ideation: No Goal/Treatment Plan - Goal/Treatment Plan Progress Toward Problem(s) and Goals/Treatment Plan: Continue taper with librium - 25 mg Q8 today Gabapentin for augmentation if needed As needed medications Bacitracin for cyst on buttock All risks, benefits and alternatives of the meds discussed, and the pt agreed and understood. Attend groups and activities Supportive therapy and psychoeducation [place] for abstinence CBT for relapse prevention Encourage MAT Refer to rehab or IOP, and self-help groups Smoking cessation with [place] Nicotine patch given. Estimated Date of D/C: 07/22/17 - Smoking Cessation Smoking Cessation Initiated: Yes
[2017-07-21 08:59] VITALS: RESP 18
[2017-07-21] MEDS: Multiple Vitamins Tab PO SCH (09:31)
[2017-07-21] MEDS: Bacitracin 500 Units/gm Oint Foilpak UD TOP SCH ×3 (09:31→17:04)
[2017-07-21] MEDS ORDERED: Pneumococcal 23-Valent Vaccine IM ONE (10:00)
--- NOTE | 2017-07-21 15:08 | PCM.PYCHPN ---
Psychiatric Progress Note - Psychiatric Progress Note Patient seen today, length of contact: 16 Patient Chief Complaint: "Doing better" Problems Identified/Issues Discussed: The pt is seen, chart reviewed, case discussed with staff. The pt is compliant with medications and reports no side-effects. Patient states he is feeling better and that the cyst on his buttocks has improved with bacitracin. Patient requests to continue Lexapro upon discharge. Symptoms are improving but needs more time to stabilize. After care discussed, support and psychoeducation given. Mental Status Examination - Cognitive Function Orientation: Person, Place, Situation, Time Memory: Intact Attention: WNL Concentration: WNL Association: WNL Fund of Knowledge: WNL - Mood Mood: Anxious - Affect Affect: Broad - Speech Speech: Appropriate - Formal Thought Process Formal Thought Process: No Impairment - Suicidal Ideation Suicidal Ideation: No - Homicidal Ideation Homicidal Ideation: No Goal/Treatment Plan - Goal/Treatment Plan Progress Toward Problem(s) and Goals/Treatment Plan: Continue taper with librium - 25 mg Q12 today Gabapentin for augmentation if needed As needed medications Continue bacitracin for cyst on buttock All risks, benefits and alternatives of the meds discussed, and the pt agreed and understood. Attend groups and activities Supportive therapy and psychoeducation [place] for abstinence CBT for relapse prevention Encourage MAT Refer to rehab or IOP, and self-help groups Smoking cessation with [place] Nicotine patch given Estimated Date of D/C: 07/22/17 - Smoking Cessation Smoking Cessation Initiated: Yes
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
[2017-07-22] MEDS: Bacitracin 500 Units/gm Oint Foilpak UD TOP SCH (09:16)
[2017-07-22] MEDS: Multiple Vitamins Tab PO SCH (09:16)
[2017-07-22 10:06] VITALS: BP 109/73; PULSE 91; TEMP 98.4; O2SAT 99
== END 2017-07-22 09:45 | disposition home or self-care (01) | DRG 895 ==
LOC: C.ER 12:42 → C.7D 14:30
PROVIDERS: ADMIT Psychiatry & Neurology Psychiatry; ATTEND Psychiatry & Neurology Psychiatry
PROC: HZ2ZZZZ Detoxification Services for Substance Abuse Treatment (ICD-10-PCS; principal; 2017-07-18)
PROC: HZ52ZZZ Individual Psychotherapy for Substance Abuse Treatment, Cognitive-Behavioral (ICD-10-PCS; 2017-07-18)
PROC: HZ59ZZZ Individual Psychotherapy for Substance Abuse Treatment, Supportive (ICD-10-PCS; 2017-07-18)
PROC: HZ56ZZZ Individual Psychotherapy for Substance Abuse Treatment, Psychoeducation (ICD-10-PCS; 2017-07-18)
PROC: HZ42ZZZ Group Counseling for Substance Abuse Treatment, Cognitive-Behavioral (ICD-10-PCS; 2017-07-18)
PROC: HZ46ZZZ Group Counseling for Substance Abuse Treatment, Psychoeducation (ICD-10-PCS; 2017-07-18)
PROC: GZHZZZZ Group Psychotherapy (ICD-10-PCS; 2017-07-18)
PROC: GZ58ZZZ Individual Psychotherapy, Cognitive-Behavioral (ICD-10-PCS; 2017-07-18)
PROC: GZ56ZZZ Individual Psychotherapy, Supportive (ICD-10-PCS; 2017-07-18)
DX: F10.230 Alcohol dependence with withdrawal, uncomplicated (principal); Y90.6 Blood alcohol level of 120-199 mg/100 ml; F14.10 Cocaine abuse, uncomplicated; F12.20 Cannabis dependence, uncomplicated; F17.210 Nicotine dependence, cigarettes, uncomplicated; F43.10 Post-traumatic stress disorder, unspecified; G40.909 Epilepsy, unspecified, not intractable, without status epilepticus; Z59.0 Homelessness; F31.9 Bipolar disorder, unspecified; L72.9 Follicular cyst of the skin and subcutaneous tissue, unspecified